=== PATIENT | female | born 1945 | race Two or more races ===

== ENCOUNTER 2024-07-02 14:46 | Emergency (ER) | payer OTHER ==
[~2024-07-02] VITALS: Ht 167.6 cm; Wt 74.8 kg
[2024-07-02] MEDS ORDERED: HYZAAR 100-12.1 EACH PO (15:22)
[2024-07-02] MEDS ORDERED: IPRATROPIUM/ALBUTEROL SULFATE 3 ML AMPUL.NEB IH SCH (17:30)
[2024-07-02] MEDS ORDERED: GUAIFENESIN/DEXTROMETHORPHAN 10ML BLIST.PACK PO ONE (17:30)
[2024-07-02] MEDS ORDERED: METHYLPREDNISOLONE SOD SUCC 125 MG VIAL IV ONE (17:30)
[2024-07-02 18:09] LABS: HEMATOCRIT 35.4 % (36.0-45.00); HEMOGLOBIN 12.2 g/dL (12.0-15.00); MEAN CELL VOLUME 86.8 fL (80.00-100.00); MEAN CORPUSCULAR HGB CONC 34.6 g/dl (32.0-36.0); PLATELET COUNT 167 K/uL (150-450); RED BLOOD COUNT 4.07 M/uL (4.00-6.00); RED CELL DISTRIBUTION WIDTH 14.1 % (11.5-14.5)
[2024-07-02 18:28] LABS: CALCIUM 9.5 mg/dL (8.5-10.1); CREATININE SERUM 0.85 mg/dL (0.55-1.02); GFR 64.85; POTASSIUM 3.16 mEq/L (3.5-5.1)
[2024-07-02 18:51] LABS: ABG PH 7.469 (7.35-7.45); ABG PO2 85.7 mmHg (80-100); ABG pCO2 34.6 mmHg (35-45); BASE EXCESS 1.4 mmol/l; BICARBONATE 24.5 mmol/l (23-25); SaO2 97.2 %; Tco2 25.6 mmol/l; o2 21 %; puncture site RADIAL RIGHT
[2024-07-02 18:52] LABS: allen test SATISFACTORY
[2024-07-02] MEDS ORDERED: ALBUTEROL1.25 MG/3 IH (19:55)
[2024-07-02] MEDS ORDERED: MEDROLPACK PO (19:55)
[2024-07-02] MEDS ORDERED: QC TUSSIN DM L118 ML PO (19:55)
[2024-07-02] MEDS ORDERED: IPRATROPIU0.2 MG/1 M IH (19:55)
[2024-07-02] MEDS ORDERED: ZITHROMAX500 MG PO (19:55)
== END 2024-07-02 19:59 | disposition home or self-care (01) ==
LOC: ER 14:48
PROVIDERS: Nurse Practitioner Family
DX: R53.81 Other malaise (principal); J45.909 Unspecified asthma, uncomplicated; J06.9 Acute upper respiratory infection, unspecified; J00 Acute nasopharyngitis [common cold]; Z20.822 Contact with and (suspected) exposure to COVID-19; I10 Essential (primary) hypertension; Z88.5 Allergy status to narcotic agent
CPT/HCPCS: 36415; 71046; 82803; 94640; 96365; 99283; J3490